=== PATIENT | female | born 1990 | race Caucasian/White ===

== ENCOUNTER 2017-09-30 15:40 | Emergency (ER) | payer SELFPAY ==
[~2017-09-30] VITALS: Ht 160 cm; Wt 80.0 kg
[~2017-09-30 15:40] MED LIST: AMOXICILLIN500 MG PO; BACTRIM,SEPT1 TABLET PO; DOCUSATE SODIU100 MG PO; ENDOCET 5-3251 EACH PO; FERROUS SULFAT325 MG PO; IBUPROFEN800 MG PO; NAPROSYN500 MG PO; NOHOMEMEDS; ORTHO TRI-CY1 TABLE1 PO; PERIDEX1 ML MM; PRENATAL TABLE1 EAC3 PO; ULTRAM50 MG PO
[2017-09-30] MEDS ORDERED: PEN-VEE K,VEET500 MG PO (16:54)
[2017-09-30] MEDS ORDERED: TRAMADOL HCL50 MG PO (16:54)
[2017-09-30 16:55] VITALS: BP 118/71
== END 2017-09-30 17:08 | disposition home or self-care (01) ==
LOC: EME 15:40
PROC: 3E0T3BZ Introduction of Anesthetic Agent into Peripheral Nerves and Plexi, Percutaneous Approach (ICD-10-PCS; principal; 2017-09-30)
DX: K02.9 Dental caries, unspecified (principal)
CPT/HCPCS: 99281; 99283; S0020